=== PATIENT | female | born 1980 | race Caucasian/White ===

== ENCOUNTER 2016-05-13 06:35 | Inpatient (IN) | payer BC ==
[~2016-05-13] VITALS: Ht 167.6 cm; Wt 90.7 kg
[2016-05-13] MEDS ORDERED: CEFAZOLIN (LD/OB) 100 ML IV PRN (06:55)
[2016-05-13] MEDS ORDERED: TERBUTALINE 1 MG/ML VIAL SUBQ PRN (06:55)
[2016-05-13] MEDS ORDERED: FAMOTIDINE 20 MG INJ IV PRN (06:55)
[2016-05-13] MEDS ORDERED: FAMOTIDINE 20 MG TAB PO PRN (06:55)
[2016-05-13] MEDS ORDERED: BUTORPHANOL 1 MG/ML VIAL IV ONE (06:55)
[2016-05-13] MEDS ORDERED: ONDANSETRON 4 MG VIAL IV PRN (06:55)
[2016-05-13] MEDS ORDERED: METOCLOPRAMIDE 10 MG/2 ML VIAL IV PUSH PRN (06:55)
[2016-05-13] MEDS ORDERED: OXYTOCIN 15 UNITS/250 ML NS 250 ML IV SCH ×2 (06:55)
[2016-05-13] MEDS ORDERED: PROCHLORPERAZINE 10 MG/2 ML VIAL IV ONE (06:55)
[2016-05-13] MEDS ORDERED: ALU/MAG/SIM 30 ML UDC PO PRN (06:55)
[2016-05-13] MEDS ORDERED: ACETAMINOPHEN 325 MG TAB PO PRN (06:55)
[2016-05-13] MEDS: LACT RINGERS 1,000 ML IV SCH ×3 (07:51→18:41)
[2016-05-13] MEDS ORDERED: LIDOCAINE 2% 5 ML IV ONE (07:55)
[2016-05-13 09:16] VITALS: Ht 167.6 cm; Wt 90.7 kg
[2016-05-13] MEDS ORDERED: BUTORPHANOL 2 MG/ML VIAL ONE (15:40)
[2016-05-13] MEDS ORDERED: ROPIV/FENT 0.2%-2MCG/ML 100 ML EPIDURAL ONE (18:21)
[2016-05-13] MEDS ORDERED: FENTANYL 100 MCG/2 ML AMP ONE (18:22)
[2016-05-13] MEDS ORDERED: FENTANYL 100 MCG/2 ML AMP EPIDURAL ONE (19:10)
[2016-05-13] MEDS ORDERED: LACT RINGERS 500 ML IV ONE (19:10)
[2016-05-13] MEDS ORDERED: LACT RINGERS 500 ML IV PRN (19:10)
[2016-05-13] MEDS ORDERED: SODIUM CHLORIDE 0.9% 500 ML IV PRN (19:10)
[2016-05-13] MEDS ORDERED: ROPIV/FENT 0.2%-2MCG/ML 100 ML EPIDURAL SCH (19:10)
[2016-05-13] MEDS ORDERED: **ONLY ANESTEHSIA MAY ORDER OPIATES WHILE ON EPIDURAL XX SCH (20:00)
[2016-05-13] MEDS ORDERED: DERMOPLAST SPRAY TOPICAL PRN (21:50)
[2016-05-13] MEDS ORDERED: ASTRINGENT MED PADS 40'S TOPICAL PRN (21:50)
[2016-05-13] MEDS ORDERED: MEASLES,MUMPS,RUBELLA VAC SUBQ.VACC ONE (21:50)
[2016-05-13] MEDS ORDERED: TDaP 0.5 ML VIAL IM.VACC ONE (21:50)
[2016-05-13] MEDS ORDERED: ZOLPIDEM 5 MG TAB PO PRN (21:50)
[2016-05-13 21:52] VITALS: BP_SYST 120; RESP 20; TEMP 98.4
[2016-05-13 22:00] VITALS: BP_SYST 120; RESP 18
[2016-05-13 22:15] VITALS: BP_SYST 137; RESP 18
[2016-05-13 22:30] VITALS: BP_SYST 130; RESP 18
[2016-05-13 23:00] VITALS: BP_SYST 112; RESP 18
[2016-05-13 23:30] VITALS: BP_SYST 128; RESP 18
[2016-05-13] MEDS: METHYLERGONOVINE 0.2 MG TAB PO SCH (23:33)
[2016-05-13] MEDS: Ibuprofen 600 MG TAB PO SCH (23:33)
[2016-05-14] VITALS: BP_SYST 128; RESP 18
[2016-05-14 00:30] VITALS: BP_SYST 132; RESP 18
[2016-05-14 05:30] VITALS: BP_SYST 104; RESP 16; TEMP 97.8
[2016-05-14] MEDS: METHYLERGONOVINE 0.2 MG TAB PO SCH ×3 (05:49→17:40)
[2016-05-14] MEDS: Ibuprofen 600 MG TAB PO SCH ×4 (05:50→23:06)
[2016-05-14] MEDS: DOCUSATE SOD 100 MG CAP PO SCH (09:10)
[2016-05-14 09:12] VITALS: BP_SYST 97; RESP 24; TEMP 98
[2016-05-14 13:28] VITALS: BP_SYST 120; RESP 24; TEMP 97.2
[2016-05-14 17:41] VITALS: BP_SYST 112; RESP 18; TEMP 97.3
[2016-05-14] MEDS ORDERED: MAG HYDROX 30 ML UDC PO SCH (21:00)
[2016-05-15 05:16] VITALS: BP_SYST 109; RESP 20; TEMP 97.7
[2016-05-15] MEDS: Ibuprofen 600 MG TAB PO SCH ×2 (06:26→11:53)
[2016-05-15] MEDS: DOCUSATE SOD 100 MG CAP PO SCH (08:32)
[2016-05-15 09:44] VITALS: BP_SYST 134; RESP 16; TEMP 98.2
[2016-05-15 11:39] VITALS: BP_SYST 134; RESP 16; TEMP 98.2
[2016-05-15] MEDS ORDERED: TDaP 0.5 ML VIAL IM.VACC ONE (11:51)
== END 2016-05-15 12:48 | disposition home or self-care (01) | DRG 775 ==
LOC: LD 06:35 → OB 05-14 01:01
PROVIDERS: ADMIT Obstetrics & Gynecology Reproductive Endocrinology; ATTEND Obstetrics & Gynecology Reproductive Endocrinology
PROC: 10E0XZZ Delivery of Products of Conception, External Approach (ICD-10-PCS; principal; 2016-05-13)
PROC: 3E033VJ Introduction of Other Hormone into Peripheral Vein, Percutaneous Approach (ICD-10-PCS; 2016-05-13)
PROC: 10907ZC Drainage of Amniotic Fluid, Therapeutic from Products of Conception, Via Natural or Artificial Opening (ICD-10-PCS; 2016-05-13)
PROC: 0HQ9XZZ Repair Perineum Skin, External Approach (ICD-10-PCS; 2016-05-13)
CPT/HCPCS: 85025; 86850; 86900; 86901; 96372